=== PATIENT | female | born 1995 | race African-American/Black ===

== ENCOUNTER 2017-06-14 19:11 | Emergency (ER) | payer BC ==
[2017-06-14] MEDS ORDERED: Bacitracin Zinc 1 Packet ONE (21:02)
== END 2017-06-14 21:40 | disposition home or self-care (01) ==
LOC: ERS 19:11
DX: T81.4XXA Infection following a procedure, initial encounter (principal); L08.9 Local infection of the skin and subcutaneous tissue, unspecified; Z79.899 Other long term (current) drug therapy
CPT/HCPCS: 99283

== ENCOUNTER 2018-06-25 19:35 | Emergency (ER) | payer BC, SELFPAY ==
--- NOTE | 2018-06-25 21:09 | RAD ---
PA AND LATERAL CHEST X-RAY 06/25/18 HISTORY: Cough and fever. FINDINGS: There is linear artifact overlying the frontal projection. However, this exam is diagnostic. The card iac silhouette and pulmonary vasculature are within normal limits. The lungs are clear. Osseous struc tures are intact. IMPRESSION: No acute cardiopulmonary process. POS: H
== END 2018-06-25 20:54 | disposition home or self-care (01) ==
LOC: ERS 19:35
DX: J06.9 Acute upper respiratory infection, unspecified (principal); F17.290 Nicotine dependence, other tobacco product, uncomplicated
CPT/HCPCS: 71046

== ENCOUNTER 2019-01-03 15:23 | Emergency (ER) | payer SELFPAY | END 2019-01-03 16:13 | disposition home or self-care (01) | LOC: ERS 15:23 | DX: R11.2 Nausea with vomiting, unspecified (principal) | CPT/HCPCS: 99283 ==

== ENCOUNTER 2019-06-24 20:34 | Emergency (ER) | payer SELFPAY ==
[2019-06-24 22:25] LABS: BHCG - Serum Negative (NEGATIVE); Pregs Control Background? CLEAR/WHITE (CLR/WHITE); Pregs Control Bar Appear? YES (CONTROL BAR)
[2019-06-24 22:38] LABS: #Basophils 0.1 thou/uL (0.0-0.2); #Eosinphils 0.5 thou/uL (0.0-0.7); #Lymphocytes 3.1 thou/uL (1.20-3.40); #Monocytes 0.5 thou/uL (0.11-0.59); #Neutrophils 6.5 thou/uL (1.40-6.50); %Basophils 0.6 % (0.0-1.0); %Eosinophils 4.9 % (0.0-10.0); %Lymphocytes 28.9 % (21.0-51.0); %Monocytes 4.3 % (0.0-10.0); %Neutrophils 61.3 % (42.0-75.0); Anisocytosis SLIGHT = 6-15 cells (100X) (0-5/hpf); Hemoglobin 9.5 g/dL (12.0-16.0); MDiff Complete? YES; Mean Corpuscular HGB CONC 31.6 g/dL (32.0-36.0); Mean Corpuscular Hemoglobin 23.3 pg (27.0-31.0); Mean Corpuscular Volume 73.7 fL (78.0-98.0); Mean Platelet Volume 8.4 fL (7.4-10.4); Microcytosis SLIGHT = 6-15 cells (100X) (0-5/hpf); Platelet Count 299 thou/uL (130-400); Red Blood Cell (RBC) Count 4.08 mill/uL (4.20-5.40); White Blood Cell (WBC) Count 10.6 thou/uL (4.8-10.8)
[2019-06-24 22:41] LABS: ALT (SGPT) 13 U/L (8-55); AST (SGOT) 16 U/L (5-34); Alkaline Phosphatase 77 U/L (40-110); Anion Gap 10 mmol/L (10-20); BUN (Urea Nitrogen) 7 mg/dL (7.0-18.7); Bilirubin, Total 0.3 mg/dL (0.2-1.2); Calc. Creatinine Clearance 0 mL/min (70-130); Calcium 8.9 mg/dL (7.8-10.44); Carbon Dioxide 27 mmol/L (22-29); Chloride 105 mmol/L (98-107); Estimated GFR-MDRD 66; Glucose 114 mg/dL (70-105); Potassium 3.5 mmol/L (3.5-5.1); Sodium 138 mmol/L (136-145)
[2019-06-24 23:07] LABS: Bacteria/HPF None Seen HPF (None Seen); Bilirubin Negative (Negative); Blood, Urine 3+ (Negative); Clarity Extra Turbid (Clear); Glucose, Urine (Dipstick) Normal (Negative); Leukocyte 75 Leu/uL (Negative); Nitrite Negative (Negative); Protein, Urine (Dipstick) 300 mg/dL (Neg-Trace); RBC/HPF Greater than 50 HPF (0-3); Squamous Epithelial None Seen HPF (0-3); Urobilinogen Normal mg/dL (Less than 2); WBC/HPF Greater than 50 HPF (0-3)
[2019-06-24 23:09] LABS: Pregnancy Test - Urine (BHCG) Negative (Negative); Pregu Control Background? CLEAR/WHITE (CLR/WHITE); Pregu Control Bar Appear? YES (CONTROL BAR); Specific Gravity 1.031 (1.002-1.036)
== END 2019-06-24 23:29 | disposition home or self-care (01) ==
LOC: ERS 20:34
DX: N17.9 Acute kidney failure, unspecified (principal); D64.9 Anemia, unspecified; N92.0 Excessive and frequent menstruation with regular cycle; F17.210 Nicotine dependence, cigarettes, uncomplicated
CPT/HCPCS: 36415; 80053; 81003; 81015; 81025; 84443; 84703; 85025; 99284

== ENCOUNTER 2019-08-19 07:14 | Emergency (ER) | payer SELFPAY | END 2019-08-19 07:57 | disposition home or self-care (01) | LOC: ERS 07:14 | DX: K05.10 Chronic gingivitis, plaque induced (principal); Z79.899 Other long term (current) drug therapy | CPT/HCPCS: 99282 ==

== ENCOUNTER 2019-08-20 07:54 | Emergency (ER) | payer SELFPAY | END 2019-08-20 08:40 | disposition home or self-care (01) | LOC: ERS 07:54 | DX: K04.7 Periapical abscess without sinus (principal); Z79.899 Other long term (current) drug therapy | CPT/HCPCS: 41800 ==

== ENCOUNTER 2019-08-31 12:43 | Emergency (ER) | payer SELFPAY ==
[2019-08-31 13:59] LABS: Hemoglobin 5.4 g/dL (12.0-16.0); Mean Corpuscular Hemoglobin 16.1 pg (27.0-31.0); Mean Corpuscular Volume 53.6 fL (78.0-98.0); Mean Platelet Volume 5.2 fL (7.4-10.4); Platelet Count 331 thou/uL (130-400); RBC Distribution Width 25.6 % (11.5-14.5); Red Blood Cell (RBC) Count 3.38 mill/uL (4.20-5.40); White Blood Cell (WBC) Count 10.7 thou/uL (4.8-10.8)
[2019-08-31 14:14] LABS: #Eosinphils 0.4 thou/uL (0.0-0.7); #Lymphocytes 3.5 thou/uL (1.20-3.40); #Monocytes 0.5 thou/uL (0.11-0.59); #Neutrophils 6.3 thou/uL (1.40-6.50); %Basophils 0.1 % (0.0-1.0); %Eosinophils 3.8 % (0.0-10.0); %Lymphocytes 32.8 % (21.0-51.0); %Monocytes 5.1 % (0.0-10.0); %Neutrophils 58.3 % (42.0-75.0); Anisocytosis MODERATE=16-30 cells (100X) (0-5/hpf); Hypochromia MODERATE=16-30 cells (100X) (0-5/hpf); MDiff Complete? YES; Microcytosis MODERATE=15-30 cells (100X) (0-5/hpf); Ovalocytes SLIGHT = 2-5 cells (100X) (0-1/hpf); Platelet Morphology Comment Appears Adequate; Poikilocytosis SLIGHT = 6-15 cells (100X) (0-5/hpf); Polychromasia MODERATE = 3-4 cells (100X) (0-2/hpf); Reflex for Review?? YES; Schistocytes SLIGHT = 2-5 cells (100X) (0-1/hpf); Stomatocytes SLIGHT = 2-5 cells (100X) (0-1/hpf); Target Cells SLIGHT = 2-5 cells (100X) (0-1/hpf); Tear Drops SLIGHT = 2-5 cells (100X) (0-1/hpf)
[2019-08-31 14:34] LABS: BHCG - Serum Negative (NEGATIVE); Pregs Control Background? CLEAR/WHITE (CLR/WHITE); Pregs Control Bar Appear? YES (CONTROL BAR)
[2019-08-31 14:53] LABS: ALT (SGPT) 9 U/L (8-55); AST (SGOT) 10 U/L (5-34); Albumin 3.9 g/dL (3.5-5.0); Alkaline Phosphatase 75 U/L (40-110); Anion Gap 9 mmol/L (10-20); BUN (Urea Nitrogen) 11 mg/dL (7.0-18.7); Bilirubin, Total 0.3 mg/dL (0.2-1.2); Calc. Creatinine Clearance 0 mL/min (70-130); Calcium 8.5 mg/dL (7.8-10.44); Carbon Dioxide 23 mmol/L (22-29); Chloride 110 mmol/L (98-107); Estimated GFR-MDRD Greater than 90; Globulin 3.2 g/dL (2.4-3.5); Glucose 98 mg/dL (70-105); Protein, Total 7.1 g/dL (6.0-8.3); Sodium 138 mmol/L (136-145)
== END 2019-08-31 19:24 | disposition home or self-care (01) ==
LOC: ONC/OP 12:43 → ERS 12:43 → EDSTATUS 13:32 → ERS 19:24
DX: D64.9 Anemia, unspecified (principal); F17.210 Nicotine dependence, cigarettes, uncomplicated
CPT/HCPCS: 36415; 36430; 80053; 84703; 85025; 85060; 86850; 86900; 86901; P9016

== ENCOUNTER 2025-03-29 21:25 | Emergency (ER) | payer OTHER, SELFPAY ==
[2025-03-29 23:07] LABS: #Basophils 0.05 10x3/uL (0.0-0.2); #Eosinophils 0.22 10x3/uL (0.0-0.7); #Monocytes 0.70 10x3/uL (0.11-0.59); #Neutrophils 5.86 10x3/uL (1.40-6.50); %Basophils 0.5 % (0.0-1.0); %Eosinophils 2.1 % (0.0-10.0); %Lymphocytes 34.5 % (21.0-51.0); %Monocytes 6.7 % (0.0-10.0); %Neutrophils 55.9 % (42.0-75.0); Hematocrit 32.5 % (36.0-47.0); Hemoglobin 10.2 g/dL (12.0-16.0); Mean Corpuscular Hemoglobin 22.6 pg (27.0-31.0); Mean Corpuscular Volume 72.1 fL (78.0-98.0); Platelet Count 240 10x3/uL (130-400); Red Blood Cell (RBC) Count 4.51 mill/uL (4.20-5.40); White Blood Cell (WBC) Count 10.47 10x3/uL (4.8-10.8)
[2025-03-29 23:19] LABS: ALT (SGPT) 22 U/L (Less than 34); AST (SGOT) 26 U/L (11-34); Albumin 3.6 g/dL (3.1-4.5); Alkaline Phosphatase 69 U/L (40-110); Anion Gap 12 mmol/L (10-20); BUN (Urea Nitrogen) 11 mg/dL (7.0-18.7); Bilirubin, Total 0.1 mg/dL (0.3-1.2); Calc. Creatinine Clearance 0 mL/min (70-130); Calcium 9.0 mg/dL (7.8-10.44); Carbon Dioxide 23 mmol/L (22-29); Chloride 107 mmol/L (98-107); Globulin 3.3 g/dL (2.4-3.5); Glucose 96 mg/dL (70-105); Potassium 4.0 mmol/L (3.5-5.1); Sodium 138 mmol/L (136-145)
[2025-03-29 23:26] LABS: BHCG - Serum Negative (NEGATIVE); Pregs Control Background? CLEAR/WHITE (CLR/WHITE); Pregs Control Bar Appear? YES (CONTROL BAR)
[2025-03-29 23:28] LABS: Microcytosis SLIGHT = 6-15 cells HPF (0-5); Platelet Adequacy Comment Platelets Normal
== END 2025-03-30 00:07 | disposition home or self-care (01) ==
LOC: ERS 21:25
DX: D64.9 Anemia, unspecified (principal); R29.700 NIHSS score 0; F17.210 Nicotine dependence, cigarettes, uncomplicated
CPT/HCPCS: 36415; 36416; 80053; 84703; 85025; 93005; 99284